=== PATIENT | female | born 1940 | race Caucasian/White ===

== ENCOUNTER 2017-04-15 10:57 | Outpatient (CLI) | payer MEDICARE, BC | END 2017-04-15 10:58 | disposition home or self-care (01) | LOC: BICMAMMO 10:57 | PROVIDERS: ATTEND Internal Medicine | DX: Z12.31 Encounter for screening mammogram for malignant neoplasm of breast (principal) | CPT/HCPCS: 77063; 77067 ==

== ENCOUNTER 2020-01-12 05:56 | Day surgery (SDC) | payer MEDICARE, BC, OTHER ==
[2020-01-07 14:18] LABS: Hemoglobin 13.4 g/dL (12.0-16.0); Mean Corpuscular HGB CONC 34.6 g/dL (32.0-36.0); Mean Corpuscular Hemoglobin 31.4 pg (27.0-31.0); Mean Corpuscular Volume 90.7 fL (78.0-98.0); Mean Platelet Volume 7.9 fL (7.4-10.4); Platelet Count 270 thou/uL (130-400); RBC Distribution Width 11.3 % (11.5-14.5); Red Blood Cell (RBC) Count 4.26 mill/uL (4.20-5.40); White Blood Cell (WBC) Count 4.7 thou/uL (4.8-10.8)
[2020-01-07 18:56] LABS: SARS-CoV-2 MS2 Positive; SARS-CoV-2 N Gene Negative; SARS-CoV-2 S Gene Negative; SARS-CoV-2 by NAA Not Detected (NotDetected); SARS-CoV-2 orf1ab Negative
[2020-01-11 10:29] VITALS: BMI 24.3
--- NOTE | 2020-01-12 05:05 | HP ---
REASON FOR ADMISSION: Symptomatic uterine prolapse with cystocele. SCHEDULED PROCEDURE: TLH-BSO with da Dawn robot assist, uterosacral ligament vaginal vault suspension and anterior repair. HISTORY OF PRESENT ILLNESS: Ms. Sen is a 79-year-old 3, para 3 with a long history of prolapse. It has become worse, requires splinting for urination and she desires definitive surgical management. ACC[employer] EXEC[employer]IVE [employer] HISTORY: x3, history of tubal ligation. No history of dysplasia. Negative Pap smear in the last 24 months. PAST SURGICAL HISTORY: Tubal ligation. She has had a right inguinal hernia repair. MEDICAL HISTORY: Hyperlipidemia and hypertension. ALLERGIES: NONE. MEDICATIONS: 1. Amlodipine. 2. Atorvastatin. 3. Hydrochlorothiazide. 4. Ibuprofen. SOCIAL HISTORY: Denies tobacco, alcohol, or IV drug abuse. PHYSICAL EXAMINATION: GENERAL: White female, in no acute distress. VITAL SIGNS: Height 5 feet and 7 inches. Weight 151. BMI 23.6. Blood pressure 136/84, pulse 75, respirations 18. HEENT: Within normal limits. LUNGS: Clear to auscultation bilaterally. HEART: Regular rate and rhythm. BREASTS: No masses bilaterally. ABDOMEN: Soft, nontender. No rebound or guarding. : Vulva without lesions. Vagina without discharge. Cervix is prolapsed through the introitus -1 to 2. She has third-degree cystocele, minimal rectocele. Uterus is small. No adnexal masses are noted. IMPRESSION: Symptomatic cystocele and uterine prolapse, desiring definitive surgical repair. PLAN: TLH-BSO, uterosacral ligament vaginal vault suspension with da Dawn robot with anterior repair and possible cystourethroscopy. The patient understands risks and benefits of procedure including bleeding, infection, recurrence of the prolapse. We will administer appropriate antibiotic and DVT prophylaxis. Job ID: [id number]
[2020-01-12] MEDS ORDERED: Famotidine/PF 20 mg/2ml Vial ONE (06:18)
[2020-01-12] MEDS ORDERED: Gabapentin 300 MG CAP ONE (06:18)
[2020-01-12] MEDS ORDERED: CeleCOXIB 100 MG CAP ONE (06:18)
[2020-01-12] MEDS ORDERED: Lidocaine 2% Jelly 5 ML TUBE ONE (06:47)
[2020-01-12] MEDS ORDERED: Fentanyl 100 MCG/2 ML VIAL ONE (06:47)
[2020-01-12] MEDS ORDERED: Methylene Blue 50 MG/10 ML AMPUL ONE (06:52)
[2020-01-12] MEDS ORDERED: Lidocaine 1% w/Epinephrine 1:100K 20 ML VIAL ONE (06:52)
[2020-01-12] MEDS ORDERED: Bupivacaine HCl 0.5%/Epinephrine 1:200,000/PF 30 ml Vial ONE (06:54)
[2020-01-12 06:58] LABS: #Eosinphils 0.1 thou/uL (0.0-0.7); #Lymphocytes 1.5 thou/uL (1.20-3.40); #Monocytes 0.3 thou/uL (0.11-0.59); #Neutrophils 3.8 thou/uL (1.40-6.50); %Basophils 0.4 % (0.0-1.0); %Eosinophils 1.8 % (0.0-10.0); %Monocytes 5.5 % (0.0-10.0); %Neutrophils 66.4 % (42.0-75.0); Hemoglobin 12.9 g/dL (12.0-16.0); Mean Corpuscular HGB CONC 34.2 g/dL (32.0-36.0); Mean Corpuscular Volume 90.8 fL (78.0-98.0); Mean Platelet Volume 7.2 fL (7.4-10.4); Platelet Count 267 thou/uL (130-400); RBC Distribution Width 11.4 % (11.5-14.5); Red Blood Cell (RBC) Count 4.15 mill/uL (4.20-5.40); White Blood Cell (WBC) Count 5.8 thou/uL (4.8-10.8)
[2020-01-12 07:20] LABS: Anion Gap 12 mmol/L (10-20); BUN (Urea Nitrogen) 18 mg/dL (9.8-20.1); Calc. Creatinine Clearance 66 mL/min (70-130); Calcium 9.8 mg/dL (7.8-10.44); Carbon Dioxide 28 mmol/L (23-31); Chloride 102 mmol/L (98-107); Estimated GFR-MDRD 72; Glucose 109 mg/dL (83-110); Potassium 3.4 mmol/L (3.5-5.1); Sodium 139 mmol/L (136-145)
[2020-01-12] MEDS ORDERED: Rocuronium Bromide 10 MG/ML (10ML VIAL) ONE (08:58)
[2020-01-12] MEDS ORDERED: Ondansetron PF 4 MG/2 ML Vial ONE (08:58)
[2020-01-12] MEDS ORDERED: PROPOFOL 200 MG/20 ML VIAL ONE (08:58)
[2020-01-12] MEDS ORDERED: Glycopyrrolate 0.2 MG/ML 5 ML SYRINGE ONE (08:58)
[2020-01-12] MEDS ORDERED: PHENYLEPHRINE-NS 100 MCG/ML 10 ML SYRINGE ONE (08:58)
[2020-01-12] MEDS ORDERED: Lidocaine 1% PF 5 ML VIAL ONE (08:58)
[2020-01-12] MEDS ORDERED: EPHEDRINE 25 MG/5 ML SYRINGE ONE (08:58)
[2020-01-12] MEDS ORDERED: Dexamethasone 20 MG/5 ML VIAL ONE (08:58)
[2020-01-12] MEDS ORDERED: Ondansetron PF 4 MG/2 ML Vial IVP PRN (09:52)
[2020-01-12] MEDS ORDERED: traMADol HCl 50 MG TAB PO PRN (09:52)
[2020-01-12] MEDS ORDERED: Bisacodyl 10 MG SUPP PR PRN (09:52)
[2020-01-12] MEDS ORDERED: Morphine 2 MG/ML VIAL SLOW IVP PRN (09:52)
[2020-01-12] MEDS ORDERED: diphenhydrAMINE 25 MG CAP PO PRN (09:52)
[2020-01-12] MEDS ORDERED: HYDROcodone/Acetaminophen 5/325 mg Tablet PO PRN ×2 (09:52)
[2020-01-12] MEDS ORDERED: Simethicone Chewable 80 MG TAB PO PRN (09:52)
[2020-01-12] MEDS ORDERED: Ondansetron HCl/PF 4 MG/2 ML Vial IVP PRN (10:02)
[2020-01-12] MEDS ORDERED: Promethazine HCl 25 MG/ML VIAL SLOW IVP PRN (10:02)
[2020-01-12] MEDS ORDERED: Promethazine HCl 25 MG/ML VIAL IM PRN (10:02)
--- NOTE | 2020-01-12 11:27 | OP ---
DATE OF PROCEDURE: 01/12/2020 PREOPERATIVE DIAGNOSIS: Symptomatic uterine prolapse with third-degree cystocele. POSTOPERATIVE DIAGNOSIS: Symptomatic uterine prolapse with third-degree cystocele. PROCEDURES PERFORMED: Total laparoscopic hysterectomy, bilateral salpingo-oophorectomy, uterosacral ligament vaginal vault suspension and anterior repair with cystourethroscopy. DEMONSTRATOR SEWING TECHNIQUES: JOSE RAMON Fagan. ANESTHESIA: General endotracheal. ESTIMATED BLOOD LOSS: Less than 50 mL. COMPLICATIONS: None. DRAINS: Tafoya to gravity. OPERATIVE FINDINGS: 1. Uterine prolapse to the introitus with third-degree cystocele, preoperatively. 2. Normal-appearing uterus, tubes, and ovaries bilaterally. 3. Hemostasis, clear urine, counts correct at the end of the procedure. 4. Reduction of cystocele with uterosacral ligament vault suspension to introitus -5 and small anterior repair. 5. Normal-appearing bladder with good ureteral efflux of urine noted bilaterally. No evidence of bladder injury. DISPOSITION: Recovery room in good condition. DESCRIPTION OF PROCEDURE: After obtaining appropriate informed consent, the patient was taken to the operating room, where general endotracheal anesthesia was achieved without difficulty. The patient prepped and draped in dorsal lithotomy position in Douglas stirrups. Sliding speculum placed in vagina. Cervix identified, noted to be at the introitus. Uterus sounded to 8 cm. MARLON manipulator with a 3 cm vaginal baseball hand sewer and an 8 cm uterine obturator was placed without difficulty. Tafoya catheter placed and attached to a 60 mL syringe. Medical Chemist turned his attention to abdominal portion of the procedure. A 5 mL of Marcaine injected at the superior aspect of the umbilicus and a Veress needle placed inside the abdominal cavity. Insufflation was carried out with carbon dioxide at max pressure of 15, volume approximately 3.5 L. A 12 mm noncutting balloon Abilio cannula was placed without difficulty. Confirmation entry into the peritoneal cavity without trauma to the underlying viscera was noted. Right and left lateral trocars, lateral to the epigastric vessels were placed to da Dawn as well as an senior office assistant port of 11 mm in the right upper quadrant. The patient was placed in steep Trendelenburg position. The da Dawn robot docked with monopolar scissors in the right hand and bipolar fenestrated forceps in the left. Adhesions of the colon in the right lower quadrant and left lower quadrant were taken down. These were thin filmy and no evidence of injury to the colon was noted. This allowed the colon to be mobilized out of the way. The infundibulopelvic ligament on the patient's left and right were both able to be isolated. Ureters were identified laterally each side and the uterosacral ligaments were identified. An incision through the peritoneum just lateral to these was made on each side to help allow the ureter to fall away from the uterosacral ligament. At this point in time, the distal left fallopian tube was coagulated through the mesosalpinx and excised to remove. The infundibulopelvic ligament was coagulated and transected through the broad and the round on the patient's left. The vesicouterine peritoneum was incised sharply and dissected off the lower uterine segment, cervix and upper vagina. Skeletonization of the uterine vessels was carried out on the left. Identical procedure was carried out on the patient's right, excising the tube, coagulating the IP and the broad, the round and getting down to the level of the uterine vessels. After the bladder had been dissected off, it was backfilled to assure proper identification of its location. It was noted to be well away from the surgical field and the apex of the vagina. Uterine vessels were coagulated and transected on both sides using bipolar coagulation and monopolar scissors. The vagina was entered anteriorly at 12 o'clock and sent from 12 to 9 and 12 to 3 then from 3 to 6 and 9 to 6, amputating the specimen. The specimen was pulled into the vagina to maintain pneumoperitoneum. Suction and irrigation was carried out. The monopolar scissors were removed. The Jaun needle retail delivery driver placed. The vaginal cuff was closed using a running continuous 2-0 PDS Stratafix locking suture from right to left and then back to right in the usual closure technique. Once this was done, the vaginal apex was elevated, 2-0 Ethibonds were whipstitched through the uterosacral ligament at its most proximal aspect on the patient's right and then reefed up to the level of the apex of the vagina and then across the apex of vagina on the right. This was used to plicate and elevate the vaginal apex and was tied down. The identical procedure was carried out on the patient's left. After this was done, another 2-0 Ethibond was used to perform a Correa's culdoplasty and posterior cul-de-sac. Good elevation of the vagina and obliteration of the cul-de-sac and Karlos was noted. Suction and irrigation was carried out. Good hemostasis was noted. Tisseel applied across all surgical surfaces. The abdomen desufflated of carbon dioxide after removing the da Dawn and undocking it. Trocars removed x4. Fascia reapproximated at the umbilicus using UR6 needle and 0-Vicryl. Skin reapproximated x4 using 4-0 Monocryl and Dermabond. The patient's legs were rotated up and weighted speculum placed in vagina. Cystocele was noted to have been reduced from third-degree to [id number] degree. Small anterior repair with Mariya plication was carried out in the midline in the usual manner after injecting lidocaine with epinephrine and using 2-0 Vicryl for plication. Moistened Kerlix pack was placed in the vagina. Tafoya catheter removed, cystourethroscopy carried out, which revealed no evidence of injury to the urethra, no evidence of injury to the vagina and no sutures noted in the vagina, good ureteral efflux bilaterally. The patient was awakened and extubated to recovery room in good condition. Job ID: [id number]
[2020-01-12] MEDS: Sodium Chloride 0.9% 1,000 ML IV SCH (13:22)
[2020-01-12] MEDS: Ibuprofen 200 MG TAB PO SCH ×2 (13:42→22:05)
--- NOTE | 2020-01-12 15:01 | EKG ---
Test Reason : PREOP Blood Pressure : / mmHG Vent. Rate : 072 BPM Atrial Rate : 072 BPM P-R Int : 190 ms QRS Dur : 082 ms QT Int : 390 ms P-R-T Axes : 077 036 253 degrees QTc Int : 427 ms Normal sinus rhythm T wave abnormality, consider inferior ischemia T wave abnormality, consider anterolateral ischemia Abnormal ECG Confirmed by ADELITA HUGHES (2) on 01/12/2020 3:01:23 PM Referred By: JOSE Confirmed By:ADELITA HUGHES
[2020-01-13] MEDS: Sodium Chloride 0.9% 1,000 ML IV SCH (00:21)
[2020-01-13 05:16] LABS: Mean Corpuscular HGB CONC 34.9 g/dL (32.0-36.0); Mean Corpuscular Hemoglobin 31.8 pg (27.0-31.0); Mean Corpuscular Volume 91.2 fL (78.0-98.0); Mean Platelet Volume 7.3 fL (7.4-10.4); Platelet Count 223 thou/uL (130-400); RBC Distribution Width 11.4 % (11.5-14.5); Red Blood Cell (RBC) Count 3.47 mill/uL (4.20-5.40); White Blood Cell (WBC) Count 11.6 thou/uL (4.8-10.8)
[2020-01-13] MEDS: Ibuprofen 200 MG TAB PO SCH (05:40)
[2020-01-13 08:09] VITALS: BP 160/84; TEMP 97.7
--- NOTE | 2020-01-13 08:41 | DIS ---
DATE OF ADMISSION: 01/12/2020 DATE OF DISCHARGE: 01/13/2020 SUMMARY OF HOSPITAL COURSE: The patient was admitted and underwent a TLH, BSO, uterosacral ligament vault suspension and anterior repair. She is tolerating p.o. well this morning, has no complaints. She has had her Tafoya catheter removed and reports normal voiding. OBJECTIVE: VITAL SIGNS: Temperature is 97.6, T-max 97.8, blood pressure 132/60, pulse 61, and respirations 16. ABDOMEN: Soft and nontender without rebound or guarding. Distention. Incisions are intact. Perineum is dry. EXTREMITIES: No clubbing, cyanosis, or edema. LABORATORY DATA: Reveals hematocrit went from 37.7% to 31.6%. IMPRESSION: Doing well status post hysterectomy with vault suspension and anterior repair. PLAN: Discharge home. Scheduled followup. The patient already has discharge medicines sent to [facility]. Job ID: [id number]
[2020-01-13] MEDS ORDERED: Hydrochlorothiazide 25 MG TAB PO SCH (09:00)
[2020-01-13] MEDS ORDERED: Glucosamine/Msm/Chondroitin A [Glucosamine Chondroitin Msm] PO SCH (09:00)
[2020-01-13] MEDS ORDERED: Lisinopril 20 MG TAB PO SCH (09:00)
[2020-01-13] MEDS ORDERED: Potassium Chloride 10 MEQ TAB PO SCH (09:00)
[2020-01-13] MEDS ORDERED: Amlodipine 5 MG TAB PO SCH (09:00)
[2020-01-13] MEDS ORDERED: Atorvastatin Calcium 40 MG TAB PO SCH (09:00)
== END 2020-01-13 09:50 | disposition home or self-care (01) ==
LOC: SDC 05:56 → 3SE 11:48 → SDC 01-13 09:50
PROVIDERS: ATTEND Obstetrics & Gynecology
PROC: 0UT94ZZ Resection of Uterus, Percutaneous Endoscopic Approach (ICD-10-PCS; principal; 2020-01-12)
PROC: 0UT24ZZ Resection of Bilateral Ovaries, Percutaneous Endoscopic Approach (ICD-10-PCS; 2020-01-12)
PROC: 0UT74ZZ Resection of Bilateral Fallopian Tubes, Percutaneous Endoscopic Approach (ICD-10-PCS; 2020-01-12)
PROC: 0JQC0ZZ Repair Pelvic Region Subcutaneous Tissue and Fascia, Open Approach (ICD-10-PCS; 2020-01-12)
DX: N81.2 Incomplete uterovaginal prolapse (principal); N94.89 Other specified conditions associated with female genital organs and menstrual cycle; E78.5 Hyperlipidemia, unspecified; I10 Essential (primary) hypertension; Z79.899 Other long term (current) drug therapy; Z20.828 Contact with and (suspected) exposure to other viral communicable diseases
CPT/HCPCS: 57240; 57425; 58571; 80048; 85025; 85027 ×2; 86850; 86900; 86901; 88307; 93005; U0003; 36415; 87635; 93010; J0690; J1100; J2405; J2704; J3010; Q9968; S0028

== ENCOUNTER 2023-05-27 12:21 | Outpatient (CLI) | payer MEDICARE | END 2023-05-27 12:22 | disposition home or self-care (01) | LOC: BICMAMMO 12:21 | PROVIDERS: ATTEND Internal Medicine | DX: Z12.31 Encounter for screening mammogram for malignant neoplasm of breast (principal) | CPT/HCPCS: 77063; 77067 ==